=== PATIENT | female | born 1945 | race Caucasian/White ===

== ENCOUNTER 2020-05-07 14:20 | Emergency (ER) | payer MEDICARE, OTHER ==
[2020-05-07] MEDS ORDERED: diltiazem 5mg/ml 5ml inj. IV ONE (14:35)
[2020-05-07] MEDS ORDERED: normal saline 1000ml 1,000 ML IV ONE ×2 (14:35→15:25)
[2020-05-07 14:43] LABS: BASOPHILS # (AUTO) 0.2 X10'3 (0-0.2); BASOPHILS % (AUTO) 1.8 % (0-1); EOSINOPHILS # (AUTO) 0.1 X10'3 (0-0.9); EOSINOPHILS % (AUTO) 0.8 % (0-6); HEMATOCRIT 43.3 % (35.0-45.0); HEMOGLOBIN 14.4 g/dl (12.0-16.0); LYMPHOCYTES # (AUTO) 2.4 X10'3 (1.1-4.8); LYMPHOCYTES % (AUTO) 22.7 % (21-51); MEAN CORPUSCULAR HEMOGLOBIN 30.8 PG (27.0-31.0); MEAN CORPUSCULAR HGB CONC 33.3 g/dL (33.0-36.5); MEAN CORPUSCULAR VOLUME 92.7 FL (78-98); MONOCYTES # (AUTO) 0.6 X10'3 (0-0.9); NEUTROPHILS # (AUTO) 7.4 X10'3 (1.8-7.7); NEUTROPHILS % (AUTO) 68.7 % (42-75); PLATELET COUNT 261 X10'3 (140-440); RED BLOOD COUNT 4.67 X10'6 (4.20-5.60); RED CELL DISTRIBUTION WIDTH 13.3 % (11.5-14.5); WHITE BLOOD COUNT 10.8 X10'3 (4.5-11.0)
[2020-05-07 15:01] LABS: ALANINE AMINOTRANSFERASE 22 U/L (12-78); ALBUMIN 3.7 G/DL (3.4-5.0); ALBUMIN/GLOBULIN RATIO 1.1 (1.1-1.5); ALKALINE PHOSPHATASE 56 IU/L (46-116); ANION GAP 11 (8-16); ASPARTATE AMINO TRANSFERASE 19 U/L (10-37); BILIRUBIN,TOTAL 0.2 MG/DL (0.1-1.0); BLOOD UREA NITROGEN 33 MG/DL (7-18); BUN/CREATININE RATIO 27.5 (6.6-38.0); CHLORIDE 103 MMOL/L (99-107); GLUCOSE 97 MG/DL (70-104); POTASSIUM 4.3 MMOL/L (3.5-5.1); SODIUM 141 MMOL/L (135-145); TOTAL CARBON DIOXIDE 26.7 MMOL/L (24-32); TOTAL PROTEIN 7.1 G/DL (6.4-8.2); eGFR 44 ML/MIN
--- NOTE | 2020-05-07 15:30 | NUR ---
ESCORTED PT TO BATHROOM; NO DIZZINESS. HR 112 UPON RETURN TO [facility], SETTLING IMMEDIATELY TO MID 90'S.
[2020-05-07] MEDS ORDERED: acetaminophen 325mg tablet PO ONE (17:45)
--- NOTE | 2020-05-07 17:45 | NUR ---
discussed pt's c/o pierre w/ latasha yancey;new order for Tylenol received.
[2020-05-07] MEDS ORDERED: metoprolol succinate 25mg (24-HOUR) SR. Tablet PO ONE (18:25)
[2020-05-07 18:57] VITALS: BP 129/77
== END 2020-05-07 19:00 | disposition home or self-care (01) ==
LOC: ER 14:20
DX: I48.91 Unspecified atrial fibrillation (principal); R42 Dizziness and giddiness; E78.00 Pure hypercholesterolemia, unspecified; I10 Essential (primary) hypertension
CPT/HCPCS: 36415; 71045; 80053; 83880; 84484; 85025; 93005; 96361; 96374; 99285; J7030; 96375; J3490

== ENCOUNTER 2021-08-02 01:12 | Emergency (ER) | payer MEDICARE, OTHER ==
[~2021-08-02] VITALS: Ht 160 cm; Wt 67.0 kg
[2021-08-02 01:16] VITALS: BP 152/73
== END 2021-08-02 06:49 | disposition left against medical advice (07) ==
LOC: ER 01:13
DX: R21 Rash and other nonspecific skin eruption (principal); Z53.21 Procedure and treatment not carried out due to patient leaving prior to being seen by health care provider

== ENCOUNTER 2022-03-09 11:18 | Emergency (ER) | payer MEDICARE, OTHER ==
[~2022-03-09] VITALS: Ht 160 cm; Wt 68.0 kg
[2022-03-09 11:22] VITALS: BP 123/77
[2022-03-09] MEDS ORDERED: HYDR28CR14 TOP ×3 (13:22→13:27)
== END 2022-03-09 13:31 | disposition home or self-care (01) ==
LOC: ER 11:18
DX: L23.9 Allergic contact dermatitis, unspecified cause (principal); E78.00 Pure hypercholesterolemia, unspecified; Z79.899 Other long term (current) drug therapy; I10 Essential (primary) hypertension
CPT/HCPCS: 99282

== ENCOUNTER 2023-05-23 17:45 | Emergency (ER) | payer MEDICARE, OTHER ==
[~2023-05-23] VITALS: Ht 162.6 cm; Wt 71.7 kg
[~2023-05-23 17:45] MED LIST: HYDR28CR14 TOP
[2023-05-23 17:46] VITALS: BP 146/70; PULSE 78; TEMP 98; O2SAT 98
[2023-05-23 19:25] VITALS: RESP 18
== END 2023-05-23 19:26 | disposition home or self-care (01) ==
LOC: ER 17:45
DX: S50.01XA Contusion of right elbow, initial encounter (principal); X58.XXXA Exposure to other specified factors, initial encounter; Y93.89 Activity, other specified; Y92.89 Other specified places as the place of occurrence of the external cause; Y99.8 Other external cause status
CPT/HCPCS: 73080; 99283